=== PATIENT | male | born 1950 | race Caucasian/White ===

== ENCOUNTER 2024-02-04 12:53 | Emergency (ER) | payer BC ==
--- NOTE | 2024-02-04 13:50 | RAD REPORT ---
EXAM: Chest Pa And Lat (2 Views) HISTORY: COUGH COMPARISON: None. FINDINGS: LUNGS/PLEURA: The lungs are clear. No pleural effusions or pneumothorax. No pulmonary edema. MEDIASTINUM: Tortuous thoracic aorta suspected. CARDIAC: The cardiac silhouette is within normal limits. UPPER ABDOMEN: No significant abnormality. BONES: No acute abnormality. LINES/TUBES/OTHER: N/A IMPRESSION: No evidence of acute cardiopulmonary disease.
[2024-02-04 14:36] LABS: Absolute Eosinophils 0.1 K/uL (0-0.5); Absolute Lymphocytes (CBC) 0.6 K/uL (0.7-4.9); Absolute Monocytes 0.9 K/uL (0.1-1.3); Absolute Neutrophil 7.6 K/uL (1.8-8.0); Basophils % 0.5 % (0-1.3); Eosinophils % 0.7 % (0-4.4); Hematocrit 43.7 % (39.6-49.0); Hemoglobin 14.6 g/dL (13.6-17.9); Lymphocytes % 6.3 % (15.3-44.8); MCH 28.5 pg (27.0-35.0); MCHC 33.4 g/dL (32.0-36.0); MCV 85.5 fL (80-100); MPV 7.8 fL (7.6-11.3); Monocytes % 9.8 % (3.3-12.3); Neutrophils % 82.7 % (41.7-73.7); Nucleated Red Blood Cells % 0.1 % (0-0); Platelets 203 thou/uL (152-406); RBC Red Blood Cell Count 5.12 M/uL (4.33-5.43); Red Cell Distribution Width 14.9 % (12.1-15.2)
[2024-02-04 14:39] LABS: Specific Gravity 1.024 (1.005-1.030); Sqamous Epithelial None Seen /HPF (None Seen); Urine Bacteria <20 /HPF (<20); Urine Bilirubin NEGATIVE (Negative); Urine Blood 2+ (Negative); Urine Clarity Extremely Turbid (Clear); Urine Color Yellow (Yellow); Urine Crystals Unidentified Few /HPF (None Seen); Urine Culture Reflex Order REFLEXED; Urine Glucose NEGATIVE (Negative); Urine Ketones NEGATIVE (Negative); Urine Microscopic Reflex YN ORDER UMIC; Urine Mucus 4+ /HPF (None Seen); Urine Nitrite 2+ (Negative); Urine Protein 2+ (Negative); Urine RBC >50 /HPF (None Seen); Urine Urobilinogen 1+ (Normal); Urine WBC >50 /HPF (<5); Urine WBC Clump Few /HPF (None Seen); Urine Yeast (Budding) Few /HPF (None Seen); Urine pH 5.5 (5.0-7.0)
[2024-02-04] MEDS ORDERED: CIPROFLOXACIN HCL 500 MG TAB ONE (14:50)
[2024-02-04 14:55] LABS: Albumin 3.2 g/dL (3.4-5.0); Albumin/Globulin Ratio 0.7 (1.1-1.8); Anion Gap 11.6 mEq/L (5.0-15.0); Bilirubin Direct 0.5 mg/dL (0-0.2); Bilirubin Indirect, Calculated 1.2 mg/dL (0.2-0.8); Bilirubin Total 1.7 mg/dL (0.2-1.0); Globulin 4.4 g/dL (2.3-3.5); Potassium 3.6 mEq/L (3.5-5.1); Protein, Total 7.6 g/dL (6.4-8.2)
--- NOTE | 2024-02-04 15:54 | EDPHYS ---
Physician Documentation [facility] Name: Lisandra Saldivar Jr Age: 73 yrs Sex: Male : 1950 Arrival Date: 02/04/2024 Time: 12:53 Bed 7 Private MD: ED Physician Dillon Michelle HPI: 02/03 15:51 This 73 yrs old Male presents to ER via Ambulatory with complaints of Urinary Problem, rn Abdominal Pain, Cough. 15:51 The patient or guardian reports cough. Onset: The symptoms/episode began/occurred 6 rn week(s) ago. Severity of symptoms: At their worst the symptoms were mild, in the emergency department the symptoms are unchanged. Modifying factors: The symptoms are alleviated by nothing, the symptoms are aggravated by nothing. The patient has not experienced similar symptoms in the past. Patient reports here for 2 reasons, cough for 6 weeks, white sputum. Has been treating himself with allergy medication and antacids. No fever or chills. Also here for urinary symptoms, increased urinary frequency and dysuria for the last few days. No flank pain. No history of kidney stones.. Historical: - Allergies: 14:02 No Known Allergies; jl7 - Home Meds: 14:02 None [Active]; jl7 - PMHx: 14:02 None; jl7 - PSHx: 14:02 None; jl7 - Immunization history:: Adult Immunizations unknown. - Infectious Disease History:: Denies. - Social history:: Smoking status: Patient denies any tobacco usage or history of. - Family history:: not pertinent. - Hospitalizations: : No recent hospitalization is reported. ROS: 15:51 Constitutional: Negative for fever, chills, and weight loss, Cardiovascular: Negative rn for chest pain, palpitations, and edema, Respiratory: Positive for cough, negative for shortness of breath Abdomen/GI: Negative for abdominal pain, nausea, vomiting, diarrhea, and constipation, : Positive for dysuria MS/Extremity: Negative for injury and deformity, Neuro: Negative for headache, weakness, numbness, tingling, and seizure, Exam: 15:51 Constitutional: This is a well developed, well nourished patient who is awake, alert, rn and in no acute distress. Cardiovascular: Regular rate and rhythm. No pulse deficits. Respiratory: No increased work of breathing, no retractions or nasal flaring. Abdomen/GI: Soft, non-tender MS/ Extremity: Pulses equal, no cyanosis. Neurovascular intact. Full, normal range of motion. Equal circumference. Neuro: Awake and alert, GCS 15 Vital Signs: 14:00 BP 139 / 102; Pulse 88; Resp 17; Temp 98.7; Pulse Ox 98% ; Weight 92.99 kg; Height 5 jl7 ft. 8 in. ; Pain 10/10; 16:00 BP 143 / 98; Pulse 84; Resp 15; Pulse Ox 99% on R/A; ko1 17:00 BP 138 / 92; Pulse 80; Resp 16; Pulse Ox 99% on R/A; ko1 14:00 Body Mass Index 31.17 (92.99 kg, 172.72 cm) jl7 14:00 Pain Scale: Adult jl7 MDM: 12:55 Medical Screening Exam initiated rn 15:51 Differential Diagnosis: Bronchitis Viral Syndrome Pneumonia Other UTI. Data reviewed: rn vital signs, nurses notes, lab test result(s), radiologic studies, plain films, and as a result, I will discharge patient. Counseling: I had a detailed discussion with the patient and/or guardian regarding the historical points, exam findings, and any diagnostic results supporting the discharge/admit diagnosis, the need for outpatient follow up, to return to the emergency department if symptoms worsen or persist or if there are any questions or concerns that arise at home. Special discussion: I discussed with the patient/guardian in detail that at this point there is no indication for admission to the hospital. It is understood, however, that if the symptoms persist or worsen the patient needs to return immediately for re-evaluation. Based on the history and exam findings, there is no indication for further emergent testing or inpatient evaluation. I discussed with the patient/guardian the need to see the primary care provider for further evaluation of the symptoms. I discussed with the patient/guardian the need to see the professor of education for further evaluation of the symptoms. 02/03 13:04 Order name: Urinalysis w/ reflexes; Complete Time: 14:42 rn 02/03 13:14 Order name: CBC with Diff; Complete Time: 14:42 rn 02/03 13:14 Order name: Basic Metabolic Panel; Complete Time: 15:40 rn 02/03 13:14 Order name: BNP; Complete Time: 15:40 rn 02/03 13:14 Order name: LFT's; Complete Time: 15:40 rn 02/03 14:43 Order name: Urine Culture EDMS 02/03 13:04 Order name: XRAY Chest Pa And Lat (2 Views); Complete Time: 13:59 rn 02/03 13:14 Order name: IV Start; Complete Time: 14:28 rn Administered Medications: 14:51 Drug: Ciprofloxacin PO 500 mg PO once Route: PO; jl7 15:21 Follow up: Response: No adverse reaction ko1 Disposition Summary: 02/04/24 15:54 Discharge Ordered Notes: Location: Home rn Problem: an ongoing problem rn Symptoms: have improved rn Condition: Stable rn Diagnosis - UTI/ Urinary tract infection, site not specified rn - Cough rn Followup: rn - With: Private Physician - When: As needed - Reason: Recheck today's complaints, Re-evaluation by your physician Discharge Instructions: - Discharge Summary Sheet rn - Urinary Tract Infection, Adult rn - Cough, Adult rn Forms: - Medication Reconciliation Form rn - Antibiotic carnival worker - Prescription Opioid Use rn - Patient Portal Instructions rn - Leadership Thank You Letter rn Prescriptions: - Cipro 500 mg Oral tablet - take 1 tablet ORAL route every 12 hours for 14 days; 28 tablet; Refills: 0, rn Product Selection Permitted - Zithromax Z-Mikey 250 mg Oral Tablet - take 1 tablet ORAL route as directed for 5 days Day 1 - take two (2) tablets rn one time. Day 2, 3, 4 , 5 take one (1) tablet once daily.; 6 tablet; Refills: 0, Product Selection Permitted Signatures: Dispatcher [employer] EDMS Dillon Michelle MD MD rn Leal, Jahala, RN RN jl7 Kayleen Epperson RN ko1 Corrections: (The following items were deleted from the chart) 13:15 13:15 CBC+H.LAB.BRZ ordered. EDMS EDMS 13:15 13:15 BASIC METABOLIC PANEL+C.LAB.BRZ ordered. EDMS EDMS 13:15 13:15 PROBNP+C.LAB.BRZ ordered. EDMS EDMS 13:15 13:15 HEPATIC FUNCTION+C.LAB.BRZ ordered. EDMS EDMS
--- NOTE | 2024-02-04 15:54 | ER ---
Nurse's Notes [facility] Name: Lisandra Saldivar Jr Age: 73 yrs Sex: Male : 1950 Arrival Date: 02/04/2024 Time: 12:53 Bed 7 Private MD: Diagnosis: UTI/ Urinary tract infection, site not specified;Cough Presentation: 02/03 14:00 Chief complaint: Patient states: cough, SOB x a few weeks; burning with urination x 4 jl7 days. Coronavirus screen: Client presents with at least one sign or symptom that may indicate coronavirus-19. Ebola Screen: No symptoms or risks identified at this time. Initial Sepsis Screen: Does the patient meet any 2 criteria? No. Patient's initial sepsis screen is negative. Does the patient have a suspected source of infection? No. Patient's initial sepsis screen is negative. Risk Assessment: Do you want to hurt yourself or someone else? Patient reports no desire to harm self or others. Onset of symptoms is unknown. 14:00 Method Of Arrival: Ambulatory jl7 14:00 Acuity: CONSTANTINO 3 jl7 Triage Assessment: 14:02 General: Appears in no apparent distress. uncomfortable, Behavior is calm, cooperative, jl7 appropriate for age. Pain: Complains of pain in chest Pain currently is 00 out of 10 on a pain scale. at worst was 10 out of 10 on a pain scale. Respiratory: Reports cough that is Airway is patent Respiratory effort is even, unlabored, Respiratory pattern is regular, symmetrical. GI: Abdomen is non-distended. Historical: - Allergies: 14:02 No Known Allergies; jl7 - Home Meds: 14:02 None [Active]; jl7 - PMHx: 14:02 None; jl7 - PSHx: 14:02 None; jl7 - Immunization history:: Adult Immunizations unknown. - Infectious Disease History:: Denies. - Social history:: Smoking status: Patient denies any tobacco usage or history of. - Family history:: not pertinent. - Hospitalizations: : No recent hospitalization is reported. Screenin:00 [facility] ED Fall Risk Assessment (Adult) History of falling in the last 3 months, ko1 including since admission No falls in past 3 months (0 pts) Confusion or Disorientation No (0 pts) Intoxicated or Sedated No (0 pts) Impaired Gait No (0 pts) Mobility Assist Device Used No (0 pt) Altered Elimination No (0 pt) Score/Fall Risk Level 0 - 2 = Low Risk Oriented to surroundings, Maintained a safe environment, Educated pt \T\ family on fall prevention, incl call for assistance when getting out of bed, Assessed \T\ reinforced patient's understanding of fall precautions, Hourly rounding (assess needs \T\ fall precautionary measures) done. Abuse screen: Denies threats or abuse. Denies injuries from another. Nutritional screening: No deficits noted. Tuberculosis screening: No symptoms or risk factors identified. Assessment: 16:00 General: Appears uncomfortable, Behavior is calm, cooperative, appropriate for age. ko1 Pain: Complains of pain in abdomen. Neuro: No deficits noted. Cardiovascular: No deficits noted. Respiratory: Reports cough that is non-productive, persistent. GI: Bowel sounds present X 4 quads. Abd is soft X 4 quads. : Reports pain flank(s). 16:00 EENT: No deficits noted. Derm: No deficits noted. Musculoskeletal: No deficits noted. ko1 No signs and/or symptoms reported regarding the musculoskeletal system. 17:00 Reassessment: discharge delayed due to patient acuity and staffing. ko1 Vital Signs: 14:00 BP 139 / 102; Pulse 88; Resp 17; Temp 98.7; Pulse Ox 98% ; Weight 92.99 kg; Height 5 jl7 ft. 8 in. ; Pain 10/10; 16:00 BP 143 / 98; Pulse 84; Resp 15; Pulse Ox 99% on R/A; ko1 17:00 BP 138 / 92; Pulse 80; Resp 16; Pulse Ox 99% on R/A; ko1 14:00 Body Mass Index 31.17 (92.99 kg, 172.72 cm) jl7 14:00 Pain Scale: Adult jl7 ED Course: 12:55 Patient arrived in ED. mr 12:55 Dillon Michelle MD is Attending Physician. rn 13:47 XRAY Chest Pa And Lat (2 Views) In Process Unspecified. EDMS 14:02 Triage completed. jl7 14:02 Arm band placed on right wrist. jl7 14:07 Cruz Dior, MIGEL is Primary Nurse. jl7 14:19 Urine collected: clean catch specimen, alie colored. zm 14:19 Urinalysis w/ reflexes Sent. zm 14:28 CBC with Diff Sent. zm 14:28 Basic Metabolic Panel Sent. zm 14:28 BNP Sent. zm 14:28 LFT's Sent. zm 14:28 Initial lab(s) drawn, by me, sent to lab. Inserted saline lock: 20 gauge in right zm antecubital area, using aseptic technique. Blood collected. Flushed with 10 mL NS. 16:00 Patient has correct armband on for positive identification. Placed in gown. Bed in low ko1 position. Call light in reach. Side rails up X2. Provided Education on: labs, meds. Pulse ox on. NIBP on. Door closed. Noise minimized. Lights dimmed. Warm blanket given. Pillow given. 16:00 No provider procedures requiring assistance completed. ko1 17:00 IV discontinued, intact, bleeding controlled, No redness/swelling at site. Pressure ko1 dressing applied. Administered Medications: 14:51 Drug: Ciprofloxacin PO 500 mg PO once Route: PO; jl7 15:21 Follow up: Response: No adverse reaction ko1 Medication: 16:00 VIS not applicable for this client. ko1 Outcome: 15:54 Discharge ordered by . rn 17:15 Discharged to home ambulatory, with family, ko1 17:15 Condition: stable 17:15 Discharge instructions given to patient, family, Instructed on discharge instructions, follow up and referral plans. medication usage, Demonstrated understanding of instructions, follow-up care, medications, Prescriptions given X 2, 17:32 Patient left the ED. ko1 Addendum: 02/07/2024 08:28 Addendum: Culture Results: Positive urine culture. No further action required. Bacteria i w sensitive to prescribed antibiotic. Signatures: Dispatcher [employer] EDOK Mesha Chang, Reg Reg Marcia Jeffers, RN Dillon Chi MD MD rn Leal, Jahala, RN RN jl7 Martinez, Zaina zm Oliver, Kathy, RN RN ko1
[2024-02-04 21:03] VITALS: TEMP 98.7
[2024-02-04 21:06] VITALS: BP 143/98; O2SAT 99
== END 2024-02-04 17:32 | disposition home or self-care (01) ==
LOC: ER 12:53
DX: N39.0 Urinary tract infection, site not specified (principal); R05.9 Cough, unspecified
CPT/HCPCS: 36415; 71046; 80048; 80076; 81001; 83880; 85025; 87077; 87086; 87088; 87186; 99284